=== PATIENT | female | born 1985 | race Asian ===

== ENCOUNTER 2017-06-18 10:15 | Inpatient (IN) | payer SELFPAY ==
[~2017-06-18] VITALS: Ht 157.5 cm; Wt 59.0 kg
[2017-06-18 10:30] VITALS: BP 114/70
[2017-06-18] MEDS ORDERED: OXYTOCIN 20 UNITS in LACTATED RINGERS 1,000 ML IV SCH (10:48)
[2017-06-18] MEDS ORDERED: NALBUPHINE 10 MG/ML AMP IVP PRN (10:50)
[2017-06-18 12:25] LABS: BASOPHILS # (AUTO) 0.1 K/uL (0.00-0.22); EOSINOPHILS # (AUTO) 0.1 K/uL (0-0.4); HEMOGLOBIN 12.9 g/dL (12.0-16.0); LYMPHOCYTES # (AUTO) 1.3 K/uL (2.5-16.5); LYMPHOCYTES % (AUTO) 13.9 % (20.5-51.1); MEAN CORPUSCULAR HEMOGLOBIN 30 pg (27-31); MEAN CORPUSCULAR HGB CONC 34 g/dL (33-37); MEAN CORPUSCULAR VOLUME 88 fL (80-94); MONOCYTES # (AUTO) 0.6 K/uL (0.8-1.0); MONOCYTES % (AUTO) 6.1 % (1.7-9.3); NEUTROPHILS # (AUTO) 7.4 K/uL (1.8-7.7); PLATELET COUNT (AUTO) 236 K/uL (140-450); RED BLOOD CELL COUNT(AUTO) 4.35 MIL/uL (4.20-5.40); RED CELL DISTRIBUTION WIDTH 13.1 % (11.6-13.7); WHITE BLOOD COUNT (AUTO) 9.5 K/uL (4.8-10.8)
[2017-06-18 12:28] LABS: APPEARANCE,URINE CLOUDY (CLEAR); BILIRUBIN,URINE NEGATIVE (NEGATIVE); BLOOD, URINE 2+ (NEGATIVE); COLOR,URINE YELLOW (YELLOW); LEUKOCYTE ESTERASE ,URINE NEGATIVE (NEGATIVE); NITRITE, URINE NEGATIVE (NEGATIVE); PH,URINE 7.5 (5.0-9.0); UGLUCOSE NEGATIVE (NEGATIVE)
[2017-06-18 12:38] LABS: RBC,URINE 3-10 (FEW) /HPF (0-5); WBC,URINE 0-5 (RARE) /HPF (0-5)
[2017-06-18] MEDS ORDERED: MISOPROSTOL 25 MCG TAB ONE ×2 (12:38→16:57)
[2017-06-18] MEDS: MISOPROSTOL 25 MCG TAB VG PRN ×2 (12:42→16:52)
[2017-06-18] MEDS: LACTATED RINGERS 1,000 ML IV SCH ×4 (13:02→18:08)
[2017-06-18] MEDS ORDERED: BUPIVACAINE 0.125%/NS PREMIX 250 ML ONE (19:19)
[2017-06-18] MEDS ORDERED: OXYTOCIN 10 UNITS/ML VIAL ONE (19:56)
[2017-06-18] MEDS ORDERED: OXYTOCIN 20 UNITS/LR PREMIX 1,000 ML IV ONE (19:56)
[2017-06-18] MEDS ORDERED: BENZOCAINE/MENTHOL 20%-0.5% 60 GM CAN TP PRN (22:20)
[2017-06-18] MEDS ORDERED: oxyCODONE/APAP 5/325 MG 1 TAB TAB PO PRN (22:20)
[2017-06-18] MEDS ORDERED: TEMAZEPAM 15 MG CAP PO PRN (22:20)
[2017-06-18] MEDS ORDERED: METHYLERGONOVINE 0.2 MG/ML AMP IM PRN (22:20)
[2017-06-18] MEDS ORDERED: OXYTOCIN 10 UNITS/ML VIAL IM PRN (22:20)
[2017-06-18] MEDS ORDERED: MEASLES, MUMPS, AND RUBELLA 1 VIAL SQVAC PRN (22:20)
[2017-06-19 05:59] LABS: HEMATOCRIT 33.5 % (36-48); HEMOGLOBIN 11.3 g/dL (12.0-16.0)
[2017-06-19] MEDS: HYDROcodone/APAP 5/325 MG 1 TAB TAB PO PRN ×2 (06:13→20:46)
[2017-06-19] MEDS: IBUPROFEN 800 MG TAB PO PRN ×2 (09:34→16:24)
--- NOTE | 2017-06-19 10:03 | NUR ---
PATIENT HAS BEEN SCREENED AND CATEGORIZED LOW NUTRITION RISK. PATIENT WILL BE SEEN WITHIN 7 DAYS OF ADMISSION. 06/25/[address]
[2017-06-19 14:00] LABS: RAPID PLASMA REAGIN NON-REACTIVE (Non Reactiv)
[2017-06-19] MEDS ORDERED: DOCUSATE SOD/SENNA 50/8.6 MG 1 TAB PO SCH (21:00)
[2017-06-20] MEDS: IBUPROFEN 800 MG TAB PO PRN (09:29)
== END 2017-06-20 18:50 | disposition home or self-care (01) | DRG 775 ==
LOC: MLD 10:15 → MFCC 06-19 02:35 → OBSVTOIN 06-19 10:13
PROVIDERS: ADMIT Obstetrics & Gynecology; ATTEND Obstetrics & Gynecology
PROC: 3E0234Z Introduction of Serum, Toxoid and Vaccine into Muscle, Percutaneous Approach (ICD-10-PCS; principal; 2017-06-18)
PROC: 10D07Z6 Extraction of Products of Conception, Vacuum, Via Natural or Artificial Opening (ICD-10-PCS; 2017-06-18)
PROC: 3E0R3BZ Introduction of Anesthetic Agent into Spinal Canal, Percutaneous Approach (ICD-10-PCS; 2017-06-18)
PROC: 00HU33Z Insertion of Infusion Device into Spinal Canal, Percutaneous Approach (ICD-10-PCS; 2017-06-18)
PROC: 0W8NXZZ Division of Female Perineum, External Approach (ICD-10-PCS; 2017-06-18)
PROC: 3E0P7VZ Introduction of Hormone into Female Reproductive, Via Natural or Artificial Opening (ICD-10-PCS; 2017-06-18)
DX: O48.0 Post-term pregnancy (principal); O66.5 Attempted application of vacuum extractor and forceps; Z23 Encounter for immunization; Z37.0 Single live birth; Z3A.39 39 weeks gestation of pregnancy
CPT/HCPCS: 36415; 51702; 59409; 81001; 85018; 85025; 86592; 86886; 86900; 86901; 87653-90; 90715; C1758; G0378; J2590; J3490; J7120